=== PATIENT | male | born 1995 | race Caucasian/White ===

== ENCOUNTER 2022-08-24 13:53 | Outpatient (REF) | payer OTHER, SELFPAY ==
[2022-08-24 18:56] LABS: Alanine Aminotransferase 17 U/L (0-40); Albumin Level 4.7 g/dL (3.5-5.0); Alkaline Phosphatase 81 U/L (39-117); Anion Gap 14 (12-20); Aspartate Amino Transferase 19 U/L (5-37); Bilirubin Total 0.6 mg/dL (0.0-1.0); Blood Urea Nitrogen 9 mg/dL (9-16); Calcium 9.6 mg/dL (8.4-10.2); Carbon Dioxide 27 mmol/L (22-29); Chloride 105 mmol/L (96-108); Estimated Glomerular Filt Rate > 60; Glucose Random 96 mg/dL (60-115); Iron 63 mcg/dL (45-160); Magnesium 2.4 mg/dL (1.6-2.6); Percent Iron Saturation 22 % (15-50); Potassium 4.4 mmol/L (3.3-5.1); Sodium 142 mmol/L (135-145); Total Iron Binding Capacity 284 mcg/dL (228-428); Unsaturated Iron Binding 221 ug/dL
[2022-08-24 19:27] LABS: Ferritin 108 ng/mL (20-250); Folate 8.5 ng/mL (> or = 4.0); Free T4 (Free Thyroxine) 1.08 ng/dL (0.71-1.85); Thyroid Stimulating Hormone 1.49 uIU/mL (0.32-4.0); Vitamin B12 554 pg/mL (200-900); Vitamin D 25-OH Total 29.8 ng/mL (>30)
== END 2022-08-24 13:54 | disposition home or self-care (01) ==
LOC: HO.MANLDS 13:53
PROVIDERS: Visit Provider Physician Assistant
DX: R53.83 Other fatigue (principal); E55.9 Vitamin D deficiency, unspecified; D64.9 Anemia, unspecified
CPT/HCPCS: 36415; 80053; 82306; 82607; 82728; 82746; 83540; 83735; 84439; 84443

== ENCOUNTER 2022-12-01 11:36 | Outpatient (REF) | payer OTHER, SELFPAY ==
[2022-12-06 15:43] LABS: Testosterone, Free 55.1 pg/mL (35.0-155.0); Testosterone, Total 207 ng/dL (250-1100)
== END 2022-12-01 11:37 | disposition home or self-care (01) ==
LOC: HO.MANLDS 11:36
PROVIDERS: Visit Provider Physician Assistant
DX: F52.21 Male erectile disorder (principal)
CPT/HCPCS: 36415; 84402; 84403

== ENCOUNTER 2022-12-08 12:13 | Outpatient (REF) | payer OTHER, SELFPAY ==
[2022-12-13 16:28] LABS: Testosterone, Free 64.8 pg/mL (35.0-155.0); Testosterone, Total 292 ng/dL (250-1100)
== END 2022-12-08 12:14 | disposition home or self-care (01) ==
LOC: HO.MANLDS 12:13
PROVIDERS: Visit Provider Physician Assistant
DX: F52.21 Male erectile disorder (principal)
CPT/HCPCS: 36415; 84402; 84403

== ENCOUNTER → 2023-12-21 09:42 | Outpatient (BNVA) | payer SELFPAY | PROVIDERS: Visit Provider Registered Nurse | DX: Z02.79 Encounter for issue of other medical certificate (principal) ==

== ENCOUNTER 2024-02-14 14:08 | Outpatient (REF) | payer SELFPAY ==
[2024-02-14 18:20] LABS: MANUAL DIFF FLAG NO
[2024-02-14 18:34] LABS: Basophils Percent Auto 0.4 % (0-2); Eosinophils Absolute Auto 0.1 X10*3/uL (0.0-0.4); Eosinophils Percent Auto 1.1 % (0-4); Hematocrit 47.2 % (42.0-52.0); Hemoglobin 15.9 g/dl (14.0-18.0); Imm Gran Abs Auto 0.03 X10*3/uL (0.00-0.03); Imm Gran Pct Auto 0.3 % (0.0-0.4); Lymphocytes Absolute Auto 2.9 X10*3/uL (1.2-4.9); Lymphocytes Percent Auto 27.4 % (20-40); Mean Corpuscular HGB Conc 33.7 g/dl (31.0-36.0); Mean Corpuscular Hemoglobin 29.4 pg (27.0-33.0); Mean Corpuscular Volume 87.2 fL (80.0-98.0); Mean Platelet Volume 10.5 fL (9.4-12.4); Monocytes Absolute Auto 0.8 X10*3/uL (0.1-1.2); Monocytes Percent Auto 7.5 % (2-11); Neutrophils Absolute Auto 6.7 x10*3/uL (2.0-8.3); Neutrophils Percent Auto 63.3 % (45-73); Platelet Count 297 X10*3/uL (160-400); Red Blood Count 5.41 X10*6/uL (4.60-5.80); Red Cell Distribution Width 12.8 % (11.0-16.0); White Blood Count 10.5 X10*3/uL (4.8-10.8)
[2024-02-14 18:55] LABS: Alanine Aminotransferase 17 U/L (0-40); Albumin Level 4.7 g/dL (3.5-5.0); Alkaline Phosphatase 71 U/L (39-117); Anion Gap 14 (12-20); Aspartate Amino Transferase 21 U/L (5-37); Bilirubin Total 0.3 mg/dL (0.0-1.0); Blood Urea Nitrogen 12 mg/dL (9-16); Calcium 9.7 mg/dL (8.4-10.2); Carbon Dioxide 27 mmol/L (22-29); Chloride 102 mmol/L (96-108); Estimated Glomerular Filt Rate > 60; Glucose Random 95 mg/dL (60-115); Iron 58 mcg/dL (45-160); Percent Iron Saturation 22 % (15-50); Potassium 3.9 mmol/L (3.3-5.1); Sodium 139 mmol/L (135-145); Total Iron Binding Capacity 266 mcg/dL (228-428); Total Protein 7.8 g/dL (6.5-8.0); Unsaturated Iron Binding 208 ug/dL
[2024-02-14 19:12] LABS: Ferritin 170 ng/mL (20-250); T4 Thyroxine 7.6 ug/dL (4.5-12.0); Thyroid Stimulating Hormone 1.31 uIU/mL (0.32-4.0)
[2024-02-14 19:25] LABS: Vitamin B12 505 pg/mL (200-900)
[2024-02-15 09:02] LABS: Complement C3 124 mg/dL (82-185)
[2024-02-15 14:24] LABS: Prolactin 7.5 ng/mL (2.0-18.0)
[2024-02-19 05:23] LABS: VITAMIN D (1,25 OH) D3 55 pg/mL; Vit D (1,25-Dihydroxy) Total 55 pg/mL (18-72); Vitamin D (1,25 OH) D2 <8 pg/mL
[2024-02-20 15:24] LABS: Adrenocorticotropic Hormone 12 pg/mL (6-50)
[2024-02-21 14:04] LABS: Testosterone, Free 50.7 pg/mL (35.0-155.0); Testosterone, Total 288 ng/dL (250-1100)
== END 2024-02-14 14:09 | disposition home or self-care (01) ==
LOC: HO.MANLDS 14:08
PROVIDERS: Visit Provider Physician Assistant
DX: E27.2 Addisonian crisis (principal); F41.1 Generalized anxiety disorder; R53.83 Other fatigue
CPT/HCPCS: 80053; 82024; 82533; 82607; 82652; 82728; 83540; 84146; 84402; 84403; 84436; 84443; 85025; 86160